=== PATIENT | male | born 1985 | race Hispanic/Latino ===

== ENCOUNTER 2019-01-16 11:33 | Emergency (ER) | payer OTHER ==
[2019-01-16 11:44] VITALS: BP 126/78; PULSE 96; RESP 18; TEMP 98.4; O2SAT 98
[2019-01-16] MEDS ORDERED: Lidocaine 1% Inj (20ml) INFIL STA (11:58)
[2019-01-16] MEDS ORDERED: Lidocaine Hydrochloride 10 ML INJ ONE (12:02)
[2019-01-16] MEDS ORDERED: Bacitracin 500 Units/gm Oint Foilpak UD ONE (12:03)
--- NOTE | 2019-01-16 12:49 | C.PDOC ---
History Of Present Illness Patient presents to ED for evaluation of right ear laceration. 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 He denies LOC, headache, dizziness, neck pain. Patient is UTD with tetanus vaccination. Time Seen by Provider: 01/16/19 11:40 Chief Complaint (Nursing): Abnormal Skin Integrity History Per: Patient History/Exam Limitations: no limitations Onset/Duration Of Symptoms: Mins Current Symptoms Are (Timing): Still Present Quality Of Symptoms: Painful Severity: Mild Past Medical History Reviewed: Historical Data, Nursing Documentation, Vital Signs Vital Signs: Last Vital Signs Temp 98.4 F 01/16/19 11:39 Pulse 96 H 01/16/19 11:39 Resp 18 01/16/19 11:39 BP 126/78 01/16/19 11:39 Pulse Ox 98 01/16/19 11:39 Primary Care Provider: Tera Mcnulty - Medical History PMH: No Chronic Diseases Surgical History: No Surg Hx Family History: States: No Known Family Hx - Social History Hx Alcohol Use: No Hx Substance Use: No - Immunization History Hx Tetanus Toxoid Vaccination: Yes Hx Influenza Vaccination: Yes Hx Pneumococcal Vaccination: No Review Of Systems Constitutional: Negative for: Fever, Chills Cardiovascular: Negative for: Chest Pain, Palpitations Respiratory: Negative for: Shortness of Breath Skin: Positive for: Other (right ear laceration). Negative for: Rash Neurological: Negative for: Weakness, Numbness, Headache, Dizziness Physical Exam - Physical Exam Appears: Well, Non-toxic, No Acute Distress Skin: Warm, Dry, Other (right ear helix 3cm laceration, antihelix 1.5cm laceratiob) Head: Normacephalic Eye(s): bilateral: Normal Inspection Oral Mucosa: Moist Cardiovascular: Rhythm Regular Respiratory: Normal Breath Sounds, No Rales, No Rhonchi, No Wheezing Neurological/Psych: Oriented x3, Normal Speech, Normal Cognition ED Course And Treatment O2 Sat by Pulse Oximetry: 98 (RA) Pulse Ox Interpretation: Normal Progress Note: Laceration repair done by me, patient tolerated well. Patient given PO tylenol and PO Keflex. Rxs for Keflex and Ibuprofen given. Patient instructed to return to ED in 5-7 days for suture removal. He understands he should return sooner if he has any concerning symptoms such as fever, discharge, bleeding, etc. Laceration - Laceration Repair EAR HELIX Wound Length (In cm): 3 Description Of Wound: Irregular Wound Cleansed With: Sterile Saline Anesthesia: Lidocaine 1% Wound Closure: Suture Suture Technique And Material Used: Nylon (5.0 - 5 SUTURES) Wound Complexity: Simple antihelix Wound Length (In cm): 1.5 Description Of Wound: Irregular (skin avulsion) Anesthesia: Lidocaine 1% Wound Examination: Irrigated With Saline, No FB With Wound Exploration Wound Closure: Suture (3) Suture Technique And Material Used: Interrupted, Nylon (5.0) Wound Complexity: Simple Disposition Counseled Patient/Family Regarding: Diagnosis, Need For Followup, Rx Given - Disposition Referrals: Tera Mcnulty MD [Staff Provider] - Disposition: HOME/ ROUTINE Disposition Time: 13:00 Condition: STABLE Additional Instructions: SUTURE REMOVAL IN 7 DAYS USE MEDICATIONS DIRECTED RETURN TO ER IF SYMPTOMS WORSEN, SUCH SWELLING, REDNESS, DRAINAGE, FEVER ETC Prescriptions: Cephalexin [Keflex] 500 mg PO BID #14 capsule Ibuprofen [Motrin Tab] 600 mg PO Q6 PRN #30 tab PRN Reason: fever/pain Instructions: Laceration Repair With Stitches (DC) Forms: [employer] (Ukrainian), Work Excuse Print Language: CHINESE - Clinical Impression Clinical Impression: Laceration of right ear lobe
== END 2019-01-16 13:13 | disposition home or self-care (01) ==
LOC: C.ER 11:33
DX: S01.311A Laceration without foreign body of right ear, initial encounter (principal); W22.8XXA Striking against or struck by other objects, initial encounter; Y92.89 Other specified places as the place of occurrence of the external cause; Y99.0 Civilian activity done for income or pay